=== PATIENT | male | born 1970 | race Caucasian/White ===

== ENCOUNTER → 2018-11-01 | Outpatient (CLI) | payer BC ==
--- NOTE | 2018-11-01 15:26 | PCVCIMAG ---
APPROVED REPORT Patient Location: Echo lab, Treadmill Stress Test Room #: Stress Nurse: Janet Main RN Indications: Hyperlipidemia, Elevated Calcium Score The patient exercised according to the SIM for 14:05 mins, achieving a work level of Max. METS 17.50. The resting heart rate of 76 bpm daily to a maximal heart rate of 190 bpm. This value represents 111% of the mzximal, age predicted heart rate. The resting blood pressure of 139/80 mmHg, daily to a maximum blood pressure of 178/80 mmHg. The exercise stress test was stopped due to fatigue. Resting EKG: Sinus rhythm normal Stress EKG: No ischemic or echocardiographic changes. Occasional isolated premature ventricular complexes. Conclusion 1. Maximal treadmill exercise study negative for exercise-induced ischemia. 2. No subjective signs of ischemia. No ischemic electrocardiographic changes. 3. The study was associated with excellent exercise capacity (17.5 METS)
== END | disposition home or self-care (01) ==
LOC: PCVCIMAG 12:54
PROVIDERS: ATTEND Internal Medicine
DX: R93.1 Abnormal findings on diagnostic imaging of heart and coronary circulation (principal); E78.5 Hyperlipidemia, unspecified; I10 Essential (primary) hypertension; F17.201 Nicotine dependence, unspecified, in remission; Z82.49 Family history of ischemic heart disease and other diseases of the circulatory system
CPT/HCPCS: 93017